=== PATIENT | female | born 1985 | race Two or more races ===

== ENCOUNTER 2022-04-10 09:54 | Emergency (ER) | payer OTHER ==
[~2022-04-10] VITALS: Ht 162.6 cm; Wt 59.0 kg
== END 2022-04-10 14:40 | disposition home or self-care (01) ==
LOC: ER 09:54
DX: N93.9 Abnormal uterine and vaginal bleeding, unspecified (principal); N83.202 Unspecified ovarian cyst, left side; N83.201 Unspecified ovarian cyst, right side